=== PATIENT | male | born 1985 ===

== ENCOUNTER 2018-02-12 22:16 | Emergency (ER) | payer SELFPAY ==
[2018-02-12] MEDS ORDERED: Fluorescein Opthalmic Strip ONE (22:48)
[2018-02-12] MEDS ORDERED: Proparacaine 0.5% Opth 15 ML BOT ONE (22:48)
== END 2018-02-12 23:24 | disposition home or self-care (01) ==
LOC: ERS 22:16
DX: S05.91XA Unspecified injury of right eye and orbit, initial encounter (principal); W22.8XXA Striking against or struck by other objects, initial encounter
CPT/HCPCS: 99283